=== PATIENT | male | born 1990 | race Caucasian/White ===

== ENCOUNTER 2016-11-05 20:25 | Emergency (ER) | payer OTHER ==
--- NOTE | ~2016-11-05 | CT4 ---
[facility] A Service of [facility] / [facility] RADIOLOGY TEXT RESULTS PATIENT: NAIN ZIEGLER LOCATION: SED : [birth year] UNIT #: [id number] AGE: [address]: Eula Maguire PAC SEX: M ORDER DR: [id number] [address] [address] [id number] MR#: [id number] Acc #: [id number] NAME: NAIN ZIEGLER : 1990 SEX: M STUDY DATE/TIME: 11/05/2016 20:42 UNIT: SED ROOM: STUDY DESCRIPTION: CT Abd and Pelv Wo Cont Attending Physician: Eula Maguire Pa-C Ordering Physician: Eula Maguire Pa-C Primary Care Physician: Vahid Israel Aprn MEDICAL IMAGING REPORT This report is preliminary unless electronic signature is present. EXAM CT abdomen and pelvis, 11/05/2016 INDICATION Back pain. Right flank pain for [address] of the abdomen and pelvis without contrast. Coronal and sagittal reconstructions were obtained. This CT exam was performed with one or more of the following radiation dose reduction techniques: automatic exposure control, adjustment of mA and/or kV according to patient size, and iterative reconstruction. COMPARISON CT abdomen and pelvis dated 05/30/2013. FINDINGS ABDOMEN: No urinary calculi. No hydronephrosis. The remaining solid abdominal organs are within normal limits. Gallbladder is not distended. The bowel is not dilated. The appendix is normal. The abdominal aorta is normal in caliber. PELVIS: No pelvic mass. Bladder is unremarkable. No enlarged pelvic or inguinal lymph nodes. No acute osseous abnormalities. IMPRESSION [facility] A Service of [facility] / [facility] RADIOLOGY TEXT RESULTS PATIENT: NAIN ZIEGLER LOCATION: SED : 90 UNIT #: [id number] AGE: [address]: Eula Maguire PAC SEX: M ORDER DR: 1. No acute findings in the abdomen or pelvis to account for the patient's symptoms. 2. Minimal atelectasis in the right lung base. Dictated by... Harrison Murdock M.D. THIS IS AN ELECTRONICALLY VERIFIED REPORT Harrison Murdock M.D. at 11/06/2016 2:32 PM MORIAH/davina TD: 11/06/2016 01:34 JOB #: [id number] MEDICAL IMAGING REPORT Page 1 of 1
[~2016-11-05 20:25] MED LIST: ALLEGRA ALLERG180 MG PO; BACTRIM DS TABL1 TA1 PO; BENTYL20 MG PO; DICLOFENAC PO; IBUPROFEN800 MG PO; INDOMETHACIN50 MG PO; KEFLEX500 MG PO; LORTAB 5/500 TA1 TA1 PO; NAPROSYN500 MG PO; NO MEDICATIONS; PEPCID AC20 M2 PO; PHENERGAN25 M1 PO; PRILOSEC20 M1 PO; PRILOSEC40 MG PO; ULTRAM PO; VIBRAMYCIN100 M1 PO; VOLTAREN75 MG PO; ZOFRAN ODT4 MG PO
[2016-11-05 20:32] LABS: URINE APPEARANCE CLEAR; URINE BILIRUBIN NEG (NEG); URINE BLOOD NEG (NEG); URINE COLOR YELLOW; URINE GLUCOSE NEG (NORM); URINE KETONE NEG (NEG); URINE LEUKOCYTE ESTERASE NEG (NEG); URINE NITRATE NEG (NEG); URINE PROTEIN NEG (NEG); URINE SPECIFIC GRAVITY 1.015 (1.003-1.035)
[2016-11-05 20:36] LABS: MICRO INDICATED? NO; URINE SOURCE CLEAN CATCH
== END 2016-11-05 21:57 | disposition home or self-care (01) ==
LOC: SED 20:25
PROVIDERS: Physician Assistant Medical
DX: R10.9 Unspecified abdominal pain (principal); Z88.8 Allergy status to other drugs, medicaments and biological substances
CPT/HCPCS: 36415; 74176; 81003; 96361; 96374; 96375; 99284; J1885; J2360

== ENCOUNTER 2017-02-05 15:32 | Emergency (ER) | payer OTHER | END 2017-02-05 16:28 | disposition home or self-care (01) | LOC: SED 15:32 | DX: M10.9 Gout, unspecified (principal); F17.210 Nicotine dependence, cigarettes, uncomplicated; Z88.5 Allergy status to narcotic agent | CPT/HCPCS: 96372; 99283; J1885 ==